=== PATIENT | female | born 1965 | race Caucasian/White ===

== ENCOUNTER 2020-02-09 13:59 | Outpatient (CLI) | payer OTHER ==
--- NOTE | 2020-02-09 15:14 | RAD ---
2 view chest: [Power scribe today] Comparison:08/05/2018 HISTORY: Renal cell carcinoma removed in 2004, annual follow-up examination FINDINGS: Heart and mediastinal contours are grossly unremarkable. No pneumothorax or pleural fluid. No focal consolidation or alveolar edema. IMPRESSION: No acute findings.
--- NOTE | 2020-02-09 15:17 | RAD ---
KUB: 02/09/2020 COMPARISON: 08/05/2018 HISTORY: Renal cell carcinoma status post nephrectomy Findings: Faint areas of calcification overlie the right upper quadrant which may signify changes of nephrocalcinosis. There are linear postoperative densities consistent with the patient's history of nephrectomy on the left in the left upper quadrant and medial left lower quadrant. The bowel gas pattern is nonobstructed. Post surgical right upper quadrant and left pelvic clips note d. IMPRESSION: Stable KUB-no acute findings.
== END 2020-02-09 14:00 | disposition home or self-care (01) ==
LOC: SCSRAD 13:59
PROVIDERS: ATTEND Urology
DX: N20.0 Calculus of kidney (principal); C64.2 Malignant neoplasm of left kidney, except renal pelvis
CPT/HCPCS: 36415; 71046; 74018; 80053; 82024; 82306; 82728; 83540; 83550; 83735; 84439; 84443; 84480; 85025